=== PATIENT | male | born 1950 | race Caucasian/White ===

== ENCOUNTER 2019-07-23 14:37 | Outpatient (CLI) | payer MEDICARE, OTHER, SELFPAY ==
--- NOTE | ~2019-07-23 | XR_ITS ---
EXAMINATION: XR chest 2V EXAM DATE: 07/23/2019 15:02 INDICATION: Cough. TECHNIQUE: Frontal and lateral projections of the chest obtained and reviewed. There is no prior quang dy for comparison. FINDINGS: The lungs are clear. There are no pleural effusions. The cardiomediastinal silhouette is within normal limits. There is no pneumothorax suspected. The bones and soft tissues are unremarkab le. IMPRESSION: No acute cardiopulmonary findings. Reviewed, dictated and finalized at location A. F DEVELOPMENT MANAGER
== END 2019-07-23 14:38 | disposition home or self-care (01) ==
PROVIDERS: PCP Family Medicine; Visit Provider Nurse Practitioner Family
DX: R05 Cough (principal)
CPT/HCPCS: 71046

== ENCOUNTER 2023-07-29 13:42 | Observation (INO) | payer MEDICARE, OTHER, SELFPAY ==
[2023-07-29] VITALS (15 sets, daily range): BP systolic 125–154; BP diastolic 68–86; PULSE 101–127; RESP 12–24; TEMP 36.7; O2SAT 95–100; BMI 24.5
--- NOTE | ~2023-07-29 | CT_ITS ---
EXAMINATION: CTA brain carotid DATE: 07/29/2023 14:15 INDICATION: Left face and hand numbness and weakness. Slurred speech. TECHNIQUE: Computed tomographic angiography (CTA) of the head was performed with 100 mL Omnipaque-350 intravenous contrast. CTA of the neck was performed with intravenous contrast. Automated exposure co ntrol and iterative reconstruction technique were employed. The dose-length product was 1121.72 mGy-c m. Maximum intensity projection and volume rendered 3D-reconstructions were created by the technologi st on a separate workstation. COMPARISON: Head CT 07/29/2023 FINDINGS: HEAD CTA: There is no intracranial hemorrhage, acute infarction, or abnormal intracranial mass lesion . There are scattered areas of nonspecific increased T2-weighted signal intensity in the cerebral whi te matter, which is within normal limits for the patient's age. The ventricles are normal in size. Th ere is mucosal thickening in the paranasal sinuses including near complete opacification of right max illary sinus and some of the posterior left ethmoid sinuses. The mastoid air cells are normal. There are likely changes of right ocular lens replacement surgery. The vertebral arteries are codominant. T here is no significant stenosis of basilar artery or the posterior cerebral arteries. The posterior c ommuting arteries are normal. There is no significant stenosis of intracranial internal carotid arter ies or anterior or middle cerebral arteries. Anterior commuting artery is normal. There is no aneurys m. NECK CTA: Calcified mediastinal lymph nodes are consistent with old adenomatous disease. There is no significant stenosis of the vertebral arteries. There is plaque in proximal left internal carotid art steven. There is 0% stenosis of the proximal right internal carotid artery relative to normal distal ar miguel lumen diameter (NASCET criteria). There is 0% stenosis of the proximal left internal carotid art steven relative to normal distal artery lumen diameter. There is severe cervical spondylosis. IMPRESSION: 1. Normal aging brain. 2. No aneurysm or significant intracranial arterial stenosis. 3. 0% stenosis of the proximal internal carotid arteries relative to normal distal artery lumen diame ters (NASCET criteria). Reviewed, dictated and finalized at location A. PICKER IMPRESSION: 1. Normal aging brain. 2. No aneurysm or significant intracranial arterial stenosis. 3. 0% stenosis of the proximal internal carotid arteries relative to normal dis alexander artery lumen diameters (NASCET criteria).
--- NOTE | ~2023-07-29 | CT_ITS ---
EXAMINATION: CT brain wo con DATE: 07/29/2023 14:04 INDICATION: Cerebrovascular accident. Left facial numbness and weakness. Slurred speech. Left hand nu mbness and weakness. TECHNIQUE: Computed tomography (CT) of the head was performed without intravenous contrast. The mA wa s adjusted according to patient size. Iterative reconstruction technique was employed. The dose-lengt h product was 681.00 mGy-cm. COMPARISON: None FINDINGS: There are scattered areas of low attenuation in the cerebral white matter, which is within normal limits for the patient's age. There is no intracranial hemorrhage, acute infarction, or abnorm al intracranial mass lesion. The ventricles are normal in size. There is mucosal thickening in the pa ranasal sinuses including near complete opacification of right maxillary sinus and some of the ultimate hoops trainer ior left ethmoid sinuses. The mastoid air cells are normal. There are likely changes of right ocular lens replacement surgery. IMPRESSION: 1. Normal aging brain. I called this result to Dr. Angulo. Reviewed, dictated and finalized at location A. ON FILLING MACHINE OPERATOR
--- NOTE | ~2023-07-29 | MR_ITS ---
MRI of the brain Clinical History: CVA Technique: Axial and sagittal T1-weighted images were acquired. These were followed by axial T2-weigh safia, diffusion weighted, gradient, and FLAIR images. Findings: No significant signal abnormality seen in the brain parenchyma. No acute infarct, intracran ial hemorrhage, or mass lesion. Ventricles and subarachnoid spaces are unremarkable. Orbits are unremarkable. There is right maxillar y sinus disease. Remaining paranasal sinuses and mastoid air cells are clear. Major intracranial flow voids are intact. Sagittal midline structures are intact. IMPRESSION: No acute infarct, intracranial hemorrhage, or mass lesion. Right maxillary sinus disease. Reviewed, dictated and finalized at [facility]. EY ROLL MAKER
--- NOTE | ~2023-07-29 | XR_ITS ---
EXAMINATION: XR chest 1V portable INDICATION: Left facial numbness and weakness, slurred speech TECHNIQUE: Portable AP chest at 1420 hours COMPARISON: 07/23/2019 FINDINGS: The lungs are free of acute opacities. No pleural effusion or pneumothorax. The heart size is normal. Calcified right hilar and right lower paratracheal lymph nodes are consistent with old gra nulomatous disease. IMPRESSION: 1. No acute cardiopulmonary abnormality. Reviewed, dictated and finalized at location B. PING INSPECTOR
--- NOTE | 2023-07-29 13:50 | ECG_ITS ---
Measurements Intervals [place] Rate: 125 P: 16 IA: 152 QRS: 104 QRSD: 82 T: 8 QT: 302 QTc: 435 Interpretive Statements SINUS TACHYCARDIA MARKED RIGHT AXIS DEVIATION [QRS AXIS > 100] ABNORMAL ECG COMPARED TO ECG 08/05/2018 11:18:19 HEART RATE IS SIGNIFICANTLY INCREASED Electronically Signed On 07-29-2023 18:37:14 WATERSHED PROGRAM MANAGER by Travis Zamora M.D.
--- NOTE | 2023-07-29 13:50 | ED.NEUROSD ---
HPI - Neuro Symptoms/Deficit General Chief Complaint: Suspected CVA Stated Complaint: THINK IM HAVING A STROKE Time Seen by Provider: 07/29/23 13:49 History of Present Illness HPI Narrative: Patient is a 73-year-old male with a history of diabetes, hyperlipidemia, hypertension presenting as a stroke alert. Patient states that he was painting when he noticed that the left lower part of his face felt numb. States that his left hand started to feel numb and he had difficulty lifting his paint brush. His brought him here for evaluation. States that his speech was slurred for a while but this is improved. States that the numbness and weakness has also improved. He denies any pain. No blood thinners. Related Data Home Medications Medication Instructions Recorded Confirmed latanoprost 0.005 % eye drops 1 drop ophthalmic (eye) DAILY 07/28/19 07/23/23 omeprazole 20 mg capsule,delayed 20 mg PO DAILY 07/28/19 07/23/23 release vit C 250 mg-vit E 90 mg-zinc 40 1 tablet PO .QD 10/31/21 07/23/23 mg-copper 1 [id number] capsule (PreserVision AREDS-2) Allergies Allergy/AdvReac Type Severity Reaction Status Date / Time No Known Allergies Allergy Verified 07/29/23 14:59 Review of Systems Review of Systems: ROS unobtainable: Yes unobtainable due to medical condition and other ( Acuity of condition) [facility] Past Medical History Medical History BMI 25.0-25.9,adult BMI 26.0-26.9,adult Bronchitis Change in pigmented lesion of face Chronic GERD Essential (primary) hypertension Mixed hyperlipidemia Tachycardia Type 2 diabetes mellitus without complications Surgical History Surgical History H/O prostate biopsy Family History Family History Father Diabetes mellitus Heart disease Aortic aneurysm Mother Diabetes mellitus Sibling No problems noted. 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 EYES: PERRLA and EOMI. ENT: grossly unremarkable NECK: Supple. CHEST: Clear to auscultation. No respiratory distress. HEART: Regular rate and rhythm ABDOMEN: Soft, nontender, nondistended EXTREMITIES: Normal range of motion. No edema. SKIN: Warm, dry, no rash. NEURO: Alert and oriented x3. 5/5 strength in all extremities, slight sensory deficit lower left face, no dysarthria or aphasia, no facial droop appreciated PSYCH: Normal mood and affect. Course Vital Signs Vital signs: Vital Signs Pulse Rate 126 H 07/29/23 14:17 Respiratory Rate 19 07/29/23 14:17 Blood Pressure 154/85 H 07/29/23 14:17 Pulse Oximetry 98 07/29/23 14:17 Oxygen Delivery Room Air 07/29/23 14:17 Pulse Rate 102 H 07/29/23 21:00 Respiratory Rate 13 07/29/23 20:45 Blood Pressure 139/72 07/29/23 20:40 Pulse Oximetry 95 07/29/23 21:00 Oxygen Delivery Room Air 07/29/23 15:07 MDM - Neuro Symptoms/Deficit MDM Narrative Medical decision making narrative: 73-y
[2023-07-29 13:59] LABS: Estimated Glomerular Filt Rate 21
[2023-07-29 14:04] LABS: Glucose Point of Care 72 mg/dl (65-105)
[2023-07-29 14:31] LABS: Basophils Percent Auto 0.4 % (0.2-1.2); Eosinophils Absolute Auto 0.2 K/mm3 (0-0.3); Hematocrit 37.5 % (42.0-52.0); Hemoglobin 11.7 g/dL (14.0-18.0); Immature Granulocyte Absolute 0.03 K/mm3 (0.00-0.031); Immature Granulocyte Percent A 0.4 % (0-0.5); Lymphocytes Absolute Auto 2.33 K/mm3 (0.9-3.2); Lymphocytes Percent Auto 28.7 % (18.3-44.2); Mean Corpuscular HGB Conc 31.2 g/dl (32-36); Mean Corpuscular Hemoglobin 26.2 pg (26-34); Mean Corpuscular Volume 83.9 fl (80-100); Mean Platelet Volume 9.7 fl (7.4-10.4); Monocytes Absolute Auto 0.7 K/mm3 (0.1-0.6); Monocytes Percent Auto 8.9 % (2.6-8.5); Neutrophils Absolute Auto 4.8 K/mm3 (1.3-6.7); Neutrophils Percent Auto 58.6 % (45.5-73.1); Platelet Count Result 251 k/mm3 (150-375); Red Blood Count 4.47 M/mm3 (4.6-6.20); Red Cell Distribution Width 14.1 % (11.5-14.5); White Blood Count 8.1 K/mm3 (4.5-10.0)
[2023-07-29 14:44] LABS: Alanine Aminotransferase 19 U/L (6-50); Albumin Level 4.7 g/dL (3.5-5.1); Alkaline Phosphatase 61 U/L (38-126); Anion Gap 15 mmol/L (8-16); Aspartate Amino Transferase 30 U/L (17-59); Bilirubin,Total 0.7 mg/dL (0.2-1.3); Blood Urea Nitrogen 38 mg/dL (9-20); Calcium 9.3 mg/dL (8.4-10.2); Carbon Dioxide 21 mmol/L (22-30); Chloride 108 mmol/L (98-107); Estimated CRCL calculation 25 ml/min; Estimated Glomerular Filt Rate 24; Glucose 64 mg/dL (65-110); Magnesium 1.2 mg/dL (1.6-2.3); Potassium 3.9 mmol/L (3.4-5.0); Sodium 144 mmol/L (137-145)
[2023-07-29 14:45] LABS: Partial Thromboplastin Time 28.7 SECONDS (22.3-36.8)
[2023-07-29 14:55] LABS: Troponin I < 0.012 ng/mL (0.000-0.034)
[2023-07-29 15:14] LABS: Appearance Urine Clear (Clear); Bilirubin Urine Negative (Negative); Blood Urine Negative (Negative); Color Urine Yellow (Yellow); Glucose Urine UA 1+ mg/dL (Negative); Ketones Urine Trace mg/dL (Negative); Leukocyte Esterase Ur Negative LEU/UL (Negative); Nitrate Urine Negative (Negative); Protein Urine Negative (Negative)
[2023-07-29] MEDS: SODIUM CHLORIDE 0.9% IV 1,000 ML 999 ML IV CONT (15:23)
[2023-07-29 15:35] LABS: Add Urine Microscopic? NO; Specific Grav Ur 1.043 (1.001-1.035)
--- NOTE | 2023-07-29 18:25 | PC.NURSE ---
Pt reports he feels like his left leg is weaker than the right. Both feet equal dorsi flex and plantar flex. Left leg is slower to raise in the air than right leg. Pt is able to hold left leg in air
--- NOTE | 2023-07-29 18:28 | WPDNEURCNPN ---
Assessment and Plan Assessment and plan (1) TIA (transient ischemic attack): Code(s): G45.9 - Transient cerebral ischemic attack, unspecified Status: Acute (2) Type 2 diabetes mellitus without complications: Qualifiers: Diabetes mellitus buttermaker continuous churn insulin use: without buttermaker continuous churn use Qualified Code(s): E11.9 - Type 2 diabetes mellitus without complications Code(s): E11.9 - Type 2 diabetes mellitus without complications Status: Acute Plan History suggesting right hemispheric dysfunction with resolution of the numbness on the left side of the body. Overall findings suggestive of cerebrovascular disease most likely transient ischemic attack and right hemispheric distribution. Patient has risk factors such as diabetes mellitus. Initial investigations suggest CT scan the brain and CT angiogram head and neck were performed which did not show any significant abnormalities. An MRI of the brain is recommended in addition she was treated with antiplatelets and statins for now. Patient follow the results of these and advise further. Patient's was also present side evaluation of explained the findings to the patient as well as her. They voiced understanding of the same. Consult date: 07/30/23 Time Seen: 18:32 Reason for consult: Patient is 73 years old developed numbness on the left side of the face as well as garbled speech this thereafter progressed to the left upper and lower limb. The symptoms started few hours ago and kept progressing into he made his way to the hospital and thereafter this started to recede and dated by the time the ER ER physician saw him he had numbness on the left side of the face which also has improved. No history of similar symptoms in the past. No recent chest pain palpitation headache or head trauma or any illness reported. Patient is otherwise feeling fairly well. He is to work in technology field in the past and had not worked for several years since he retired. 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 HPI: Damon Fraga is a 73 year old male Review of Systems Review of Systems: All systems reviewed & are unremarkable except as noted in HPI and below PMFSH Past Medical History Medical History (Updated 07/30/23 @ 02:46 by Oriana Salas DO) Bronchitis Chronic GERD Essential (primary) hypertension Mixed hyperlipidemia Prostate cancer Tachycardia Type 2 diabetes mellitus without complications Surgical History Surgical History (Updated 07/30/23 @ 02:46 by Oriana Salas DO) H/O prostate biopsy S/P right cataract extraction Family History Family History Father Diabetes mellitus Heart disease Aortic aneurysm Mother Diabetes mellitus Sibling No problems noted. Social History Social History (Updated 07/30/23 @ 09:12 by Oriana Salas DO) Social History: Patient lives with his of 50 years. They raised 4 children. He quit smoking in the 1970s. He does not drink alcohol to excess. He denies illicit substance use. He worked in the [employer] field but retired over 20 years ago. 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 He is right handed. Code status: Full code Surrogate decision maker: Smoking status: Former smoker Second hand tobacco smoke exposure: No Alcohol intake: never Substance use: never Substance use type: does not use Do You Feel Safe in your Home?: Yes Lack of Transportation: No Lack of Food: Never True Current Housing: I Have Housing Concerned About Future Housing: No Difficulty Paying Gas/Electric Bills: No Difficulty Paying for Meds: No Currently Unemployed: No Education: High School Diploma/GED Difficulty w/ Childcare or Family Care: No Living arrangements: with family Occupation/Edu
[2023-07-29 18:31] LABS: Troponin I < 0.012 ng/mL (0.000-0.034)
--- NOTE | 2023-07-29 18:33 | ECG_ITS ---
Measurements Intervals [place] Rate: 106 P: 55 OK: 169 QRS: -32 QRSD: 77 T: 56 QT: 325 QTc: 433 Interpretive Statements SINUS TACHYCARDIA Can not rule out old INFERIOR MYOCARDIAL INFARCTION COMPARED TO ECG 07/29/2023 14:21:10 POSSIBLE OLD MYOCARDIAL INFARCT FINDING NOW PRESENT HOWEVER, THE AXIS IS MUCH DIFFERENT, AND THE PRIOR EKG MAY HAVE HAD LIMB LEAD MISPLACEMENT. Electronically Signed On 07-30-2023 12:24:57 SHEET ROCKER by Christina Chang M.D.
--- NOTE | 2023-07-29 19:12 | PC.NURSE ---
Report given to Siomara MARTINEZ, all questions answered
[2023-07-29 20:47] LABS: Troponin I < 0.012 ng/mL (0.000-0.034)
[2023-07-29] MEDS: MAGNESIUM SULF 2 GM/WATER 50ML 2 GM/50 ML BAG IVPB (22:39)
[2023-07-29] MEDS: SODIUM CHLORIDE 0.9% IV 1,000 ML 100 ML IV CONT (22:40)
[2023-07-30] VITALS: PULSE 115
--- NOTE | 2023-07-30 | ECHO_ITS ---
Patient Info Name: Damon Fraga Age: 73 years : 1950 Gender: Male Ht: 72 in Wt: 180 lbs BSA: 2.04 m2 HR: 89 bpm BP: 123 / 76 mmHg Technical Quality: Good Exam Date: 07/30/2023 2:10 PM Exam Location: Echo Lab Patient Status: Inpatient Admit Date: 07/29/2023 Staff Ordering Physician: Jigna Atkinson MD Major General: Attending Provider: Jeremias White MD Exam Type: CA echo doppler w bubble study Study Info Indications G45.9 - Transient cerebral ischemic attack, unspecified Complete two-dimensional, color flow and Doppler transthoracic echocardiogram is performed. Complete two-dimensional, color flow and Doppler transthoracic echocardiogram is performed with agitated saline. Contrast/Agitated Saline Contrast/Ag. Saline: Agitated Saline Amount: 20.00 ml Existing IV Access: Yes IV Access Condition: patent with no signs of infiltration Summary 1. Complete two-dimensional, color flow and Doppler transthoracic echocardiogram is performed. 2. Left ventricular chamber dimension is normal. 3. Left ventricular systolic function is mildly reduced, estimated at 45-50%. 4. Mid to apical LV septum is thin and akinetic. 5. The left ventricular diastolic function is grade I diastolic dysfunction. 6. E/e' 10 is mildly elevated. 7. Left atrial chamber dimension is mildly enlarged. 8. There is mild aortic valve sclerosis. 9. The mitral valve has moderately calcified annulus. 10. There is trace tricuspid valve regurgitation. Left Ventricle E/e' 10 is mildly elevated. Mid to apical LV septum is thin and akinetic. Left ventricular chamber dimension is normal. Left ventricular systolic function is mildly reduced, estimated at 45-50%. The left ventricular diastolic function is grade I diastolic dysfunction. Right Ventricle Right ventricular chamber dimension is normal. Right ventricular systolic function is normal. Left Atria Left atrial chamber dimension is mildly enlarged. Right Atria Right atrial chamber dimension is normal. Atrial Septum Agitated saline injection with and without valsalva maneuver opacified right side cardiac chambers without shunt to left side cardiac chambers. Intact interatrial septum visualized by 2D and agitated saline imaging. Aortic Valve The aortic valve is trileaflet. There is mild aortic valve sclerosis. There is no aortic valve stenosis. There is no aortic valve regurgitation. Pulmonic Valve There is no pulmonic regurgitation. Mitral Valve The mitral valve has moderately calcified annulus. There is no mitral valve stenosis. There is no mitral valve regurgitation. Tricuspid Valve RVSP is not calculated due to an inadequate TR jet. There is trace tricuspid valve regurgitation. Pericardium/Pleural There is no pericardial effusion. Inferior Vena Cava Normal inferior vena cava with >50% collapse upon inspiration consistent with normal right atrial pressure, 5 mmHg. Aorta The aortic root size at the sinus of Valsalva is normal. Left Ventricular Outflow Tract Name Value Normal LVOT 2D LVOT Diameter 2.1 cm LVOT Doppler LVOT Peak Gradient 3 mmHg LVOT Mean Gradient 2
--- NOTE | 2023-07-30 02:43 | PM.IMHP ---
H&P: HPI History of Present Illness Date/Time: 07/30/23 00:15 Chief Complaint: ?I think I am having a stroke? Narrative: 73-year-old male with a past medical history of chronic bronchitis, diabetes and hyperlipidemia who presented to the ER with sudden onset of left-sided weakness accompanied by slurred speech. Patient's symptoms started around 13:00. Patient came to the ER within 15-20 minutes of onset of symptoms. He arrived by private vehicle. He reports that he was painting a wall and is up stairs hallway when he suddenly could not hold on to the paint brush and dropped it. Then he noticed that his left leg was weak kidney was having trouble moving it. When he went to tell his about a symptoms she noticed that his speech was slurred. He also noticed that the left part of his face seemed to be numb. His brought him to the ER and their vehicle. His speech had improved by the time patient arrived to the ER but the numbness in his extremity lasted until around 20:00. He reports that his symptoms in his left upper lower extremity seemed actually worsen after arrival to the ER as he was barely able to lift his leg from the bed. However after 20:00 the patient was able to freely move his leg and lifted up as high as the right leg. He had never had symptoms like this before. He denies any visual changes. He has not had any further difficulty with speech. He follows commands without difficulty. He denies any recent changes in medications or lightheadedness with standing. He denies any vertigo. Review of Systems Review of Systems: 12 systems were reviewed with pertinent positives and negatives per HPI. Except as documented in the HPI, all other systems were reviewed and are negative. [facility] Past Medical History Medical History (Updated 07/30/23 @ 02:46 by Oriana Salas DO) Bronchitis Chronic GERD Essential (primary) hypertension Mixed hyperlipidemia Prostate cancer Tachycardia Type 2 diabetes mellitus without complications Surgical History Surgical History (Updated 07/30/23 @ 02:46 by Oriana Salas DO) H/O prostate biopsy S/P right cataract extraction Family History Family History Father Diabetes mellitus Heart disease Aortic aneurysm Mother Diabetes mellitus Sibling No problems noted. Social History Social History (Updated 07/30/23 @ 09:12 by Oriana Salas DO) Social History: Patient lives with his of 50 years. They raised 4 children. He quit smoking in the 1970s. He does not drink alcohol to excess. He denies illicit substance use. He worked in the [employer] field but retired over 20 years ago. 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 He is right handed. 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
[2023-07-30 06:00] VITALS: BP 123/76; PULSE 91; RESP 18; TEMP 36.8; O2SAT 97
[2023-07-30 08:04] VITALS: PULSE 89
[2023-07-30] MEDS: ASPIRIN 81 MG ENTERIC TABLET PO (08:31)
[2023-07-30 09:56] LABS: Cholesterol 132 mg/dL (0-200); HDL Direct 32 mg/dL; Triglycerides 237 mg/dL (<150)
[2023-07-30 10:06] LABS: LDL Cholesterol Direct 65 mg/dL
[2023-07-30] MEDS: EMPAGLIFLOZIN 25 MG TABLET BY MOUTH (10:33)
[2023-07-30] MEDS: PANTOPRAZOLE 40 MG TABLET PO (10:33)
[2023-07-30] MEDS: lisinopriL 20 MG TABLET PO (10:33)
[2023-07-30 12:04] VITALS: PULSE 101
[2023-07-30 12:05] LABS: Glucose Point of Care 326 mg/dl (65-105)
[2023-07-30] MEDS: SODIUM CHLORIDE 0.9% IV 1,000 ML 100 ML IV CONT (12:22)
[2023-07-30] MEDS: INSULIN ASPART (*BKC) 100 UNITS/ML SUB-Q (12:23)
--- NOTE | 2023-07-30 12:30 | PCCCNOTE ---
On 07/30/23, the student, [Ekta Bond ], provided care and completed [facility] documentation on this patient. I have reviewed the student's documentation and agree with the findings.
--- NOTE | 2023-07-30 13:22 | PM.DS ---
DS: Admitting Diagnosis Discharge Date July 30, 2023 Admitting Diagnosis Weakness DS: Discharge Diagnosis Discharge Diagnosis (1) TIA (transient ischemic attack): Code(s): G45.9 - Transient cerebral ischemic attack, unspecified Status: Acute Plan This is a pleasant 73-year-old male with past medical history chronic bronchitis, insulin-dependent diabetes mellitus, hyperlipidemia, hypertension. Presented with sudden onset of left-sided weakness accompanied by slurred speech. His symptoms resolved. Brain MRI demonstrated no acute infarct. Head and neck CTA did not demonstrate acute infarct or carotid artery stenosis. Is atorvastatin 40 mg p.o. q.day change 80 mg p.o. q.day. Baby aspirin added as well. Neurology did not have any further recommendations. Surface echocardiogram with bubble study conducted. To follow-up on that with PCP and Neurology. He also sees a credit historian for hypertension and sinus tachycardia. No arrhythmias identified on telemetry. Adverse effects risks and benefits discussed on medications and patient understood and agreed. Extensive counseling also provided on the expectations and disease course for TIA. Including weight, hypertension, smoking, diabetes, cholesterol, and he is to follow-up with his PCP within 2 weeks and Neurology within 4 weeks. The patient was in understanding and agreement with this. The patient was focal during his stay. He is discharged in stable condition to home with his on 07/30/2023. DS: Summary Hospital Course Hospital Course: This is a pleasant 73-year-old male with past medical history chronic bronchitis, insulin-dependent diabetes mellitus, hyperlipidemia, hypertension. Presented with sudden onset of left-sided weakness accompanied by slurred speech. His symptoms resolved. Brain MRI demonstrated no acute infarct. Head and neck CTA did not demonstrate acute infarct or carotid artery stenosis. Is atorvastatin 40 mg p.o. q.day change 80 mg p.o. q.day. Baby aspirin added as well. Neurology did not have any further recommendations. Surface echocardiogram with bubble study conducted. To follow-up on that with PCP and Neurology. He also sees a credit historian for hypertension and sinus tachycardia. No arrhythmias identified on telemetry. Adverse effects risks and benefits discussed on medications and patient understood and agreed. Extensive counseling also provided on the expectations and disease course for TIA. Including weight, hypertension, smoking, diabetes, cholesterol, and he is to follow-up with his PCP within 2 weeks and Neurology within 4 weeks. The patient was in understanding and agreement with this. The patient was focal during his stay. He is discharged in stable condition to home with his on 07/30/2023. Time Spent with Patient Time attestation: Total time spent providing and/or coordinating discharge services: Exam Const: General: cooperative and no acute distress Resp: Effort & Inspection: normal respiratory effort Auscultation: clear to auscultation bilaterally Cardio: Rate: regular rate Rhythm: regular rhythm Heart sounds: S1 normal heart sound present and S2 normal heart sound present GI: GI Palp: No abdominal tenderness Auscultation: normal bowel sounds DS: Data Data Completed and Pending Labs on day of discharge: Labs from last 24 hours 07/30/23 07/30/23 07/29/23 11:56 09:36 20:07 WBC RBC Hgb Hct MCV MCH MCHC RDW Plt Count MPV Immature Gran % (Auto) Neut % (Auto) Lymph % (Auto) [place] % (Auto) Eos % (Auto) Baso % (Auto) Lymph # (Auto) [place] # (Auto) Eos # (Auto) Baso # (Auto) Abs Immat Gran (auto) Absolute Neuts (auto) Absolute Nucleated RBC Nucleated RBC % PT INR APTT Sodium Potassium Chloride Carbon Dioxide Anion Gap BUN Creatinine Estim Creat Clear Calc Estimated GFR Glucose POC Cap
[2023-07-30 14:00] VITALS: BP 145/82; PULSE 95; RESP 16; TEMP 36.5; O2SAT 99
== END 2023-07-30 15:35 | disposition home or self-care (01) ==
LOC: ANHED 14:28 → ANH3MED 21:38 → ANH3MEDSUR 07-31 09:05
PROVIDERS: Internal Medicine; Admitting Provider Family Medicine; Emergency Provider Emergency Medicine; PCP Family Medicine; Visit Provider General Practice
DX: G45.9 Transient cerebral ischemic attack, unspecified (principal); J42 Unspecified chronic bronchitis; E11.9 Type 2 diabetes mellitus without complications; E78.5 Hyperlipidemia, unspecified; I11.9 Hypertensive heart disease without heart failure; I35.8 Other nonrheumatic aortic valve disorders; I34.81 Nonrheumatic mitral (valve) annulus calcification; K21.9 Gastro-esophageal reflux disease without esophagitis; R94.31 Abnormal electrocardiogram [ECG] [EKG]; E78.2 Mixed hyperlipidemia; F10.90 Alcohol use, unspecified, uncomplicated; Z87.891 Personal history of nicotine dependence; Z79.82 Long term (current) use of aspirin; Z79.51 Long term (current) use of inhaled steroids; Z79.84 Long term (current) use of oral hypoglycemic drugs; Z79.899 Other long term (current) drug therapy; Z83.3 Family history of diabetes mellitus; Z82.49 Family history of ischemic heart disease and other diseases of the circulatory system
CPT/HCPCS: 36415; 70450; 70496; 70498; 70551; 71045; 80053; 80061; 81003; 82948; 83735; 84484; 85025; 85610; 85730; 93005; 93306; 96361; 96374; 96375; 99285; A9270; G0378; J1815; J3475; J7030; Q9967

== ENCOUNTER 2023-10-24 13:10 | Outpatient (CLI) | payer MEDICARE, OTHER, SELFPAY ==
--- NOTE | ~2023-10-24 | US_ITS ---
EXAMINATION: US renal BI DATE: 10/24/2023 14:25 INDICATION: Stage IIIa chronic kidney disease TECHNIQUE: Multiple ultrasound grayscale images of the kidneys were obtained. COMPARISON: None. FINDINGS: The right kidney measures 10.3 x 5.2 x 4.3 cm. The left kidney measures 11.5 x 6.0 x 3.4 cm. The kidn eys demonstrate normal echogenicity. There are multiple bilateral subcentimeter anechoic renal cysts. Mild caliectasis at the left kidney without atif hydronephrosis. No hydronephrosis at the right kid rafy. No stones identified. The bladder is normal. Prostatomegaly measuring 5.1 x 4.5 cm . IMPRESSION: 1. Bilateral subcentimeter renal cysts and mild caliectasis the left kidney without atif hydronephro sis. 2. Prostatomegaly. Reviewed, dictated and finalized at location A. IMPRESSION: 1. Bilateral subcentimeter renal cysts and mild caliectasis the left kidney wit hout atif hydronephrosis. 2. Prostatomegaly.
== END 2023-10-24 13:11 | disposition home or self-care (01) ==
PROVIDERS: PCP Family Medicine; Visit Provider Internal Medicine Nephrology
DX: N18.31 Chronic kidney disease, stage 3a (principal); N40.0 Benign prostatic hyperplasia without lower urinary tract symptoms; N28.1 Cyst of kidney, acquired
CPT/HCPCS: 76775